=== PATIENT | female | born 1950 | race Caucasian/White ===

== ENCOUNTER → 2016-05-05 | Outpatient (CLI) | payer MEDICARE, OTHER ==
[2016-05-05 11:13] LABS: Potassium 3.4 mmol/L (3.5-5.1)
== END | disposition home or self-care (01) ==
LOC: LABWHC1 10:21
PROVIDERS: ATTEND Family Medicine
CPT/HCPCS: 36415; 80051

== ENCOUNTER → 2016-05-13 | Outpatient (CLI) | payer MEDICARE, OTHER ==
[2016-05-13 08:59] LABS: Appearance,Urine Clear (Clear); Bilirubin,Urine Negative (Negative); CH 30.1; CHCM 34.9; Glucose,Urine (UA) Negative (Negative); HCT 37.5 % (34.0-46.0); HDW 3.04; HGB 12.8 gm/dL (11.4-16.0); Ketones,Urine Negative (Negative); Leukocyte Esterase,Urine Moderate (Negative); MCH 29.7 pg (25.0-35.0); MCHC 34.3 g/dL (31.0-37.0); MCV 86.6 fL (80.0-100.0); Mean Platelet Volume 8.8; Mucus,Urine Rare /hpf; Nitrite,Urine Negative (Negative); PH, Urine 6.5 (5.0-8.0); Particle Count 2243; Protein,Urine Negative (Negative); RBC 4.33 m/uL (3.80-5.40); RBC,Urine <1 /hpf (0-5); RDW 13.5 % (11.5-15.5); Specific Gravity,Urine 1.012 (1.001-1.035); Squamous Epithelial Cell,Urine 1 /hpf (0-4); UA Billing (MACRO vs. MICRO) MICRO; Urobilinogen,Urine <2.0 mg/dL (<2.0); WBC 6.4 k/uL (3.8-10.6); WBC,Urine 6 /hpf (0-5)
[2016-05-13 09:07] LABS: ALT 33 U/L (9-52); AST 21 U/L (14-36); Alkaline Phosphatase 99 U/L (38-126); Anion Gap 11 mmol/L; Blood Urea Nitrogen 16 mg/dL (7-17); Calcium 9.9 mg/dL (8.4-10.2); Carbon Dioxide 28 mmol/L (22-30); Chloride 102 mmol/L (98-107); Glucose 101 mg/dL (74-99); Non-African American GFR(MDRD) >60 (>60 ml/min/1.73 sqM); Phosphorous 3.2 mg/dL (2.5-4.5); Potassium 3.3 mmol/L (3.5-5.1); Sodium 141 mmol/L (137-145); Total Bilirubin 0.5 mg/dL (0.2-1.3); Total Protein 6.7 g/dL (6.3-8.2)
== END | disposition home or self-care (01) ==
LOC: LABWHC1 08:14
PROVIDERS: ATTEND Orthopaedic Surgery
DX: M84.362A Stress fracture, left tibia, initial encounter for fracture (principal); M17.12 Unilateral primary osteoarthritis, left knee; M22.2X2 Patellofemoral disorders, left knee; E55.9 Vitamin D deficiency, unspecified
CPT/HCPCS: 36415; 80053; 81001; 82306; 82310; 82652; 83970; 84100; 85027

== ENCOUNTER → 2016-07-12 | Outpatient (CLI) | payer MEDICARE, OTHER ==
--- NOTE | 2016-07-13 13:48 | MM ---
Reason for exam: screening (asymptomatic). Last mammogram was performed 1 year and 3 months ago. History: Patient is postmenopausal and has history of other cancer at age 63. Excisional biopsy of the left breast. Took estrogen for 16 years 4 months. Took progesterone for 16 years 4 months. Physical Findings: A clinical breast exam by your physician is recommended on an annual basis and results should be correlated with mammographic findings. MG 3D Screening Mammo W/Cad Bilateral CC and MLO view(s) were taken. Prior study comparison: April 21, 2015, bilateral MG screening mammo w CAD. February 02, 2009, bilateral diagnostic digital mammog. The breast tissue is extremely dense which could obscure a lesion on mammography. There is chronic nodularity bilaterally. There is no dominant lesion. No significant changes when compared with prior studies. ASSESSMENT: Benign, BI-RAD 2 RECOMMENDATION: Routine screening mammogram of both breasts in 1 year.
== END | disposition home or self-care (01) ==
LOC: RADMAMWWP 16:12
PROVIDERS: ATTEND Family Medicine
DX: Z12.31 Encounter for screening mammogram for malignant neoplasm of breast (principal)
CPT/HCPCS: 77063; G0202

== ENCOUNTER → 2017-09-07 | Outpatient (CLI) | payer MEDICARE, OTHER ==
--- NOTE | 2017-09-12 11:19 | MM ---
Reason for exam: screening (asymptomatic). Last mammogram was performed 1 year and 2 months ago. History: Patient is postmenopausal and has history of other cancer at age 63. Excisional biopsy of the left breast. Took estrogen for 16 years 4 months. Took progesterone for 16 years 4 months. Physical Findings: A clinical breast exam by your physician is recommended on an annual basis and results should be correlated with mammographic findings. MG Screening Mammo w CAD Bilateral CC and MLO view(s) were taken. Prior study comparison: July 12, 2016, bilateral MG 3d screening mammo w/cad. April 21, 2015, bilateral MG screening mammo w CAD. The breast tissue is heterogeneously dense. This may lower the sensitivity of mammography. No suspicious abnormality on the right. Rounded left upper inner quadrant focal asymmetry at middle posterior depth, 8cm from nipple. ASSESSMENT: Incomplete: need additional imaging evaluation, BI-RAD 0 RECOMMENDATION: Special view mammogram of the left breast. If lesion persists on supplemental views, image directed ultrasound is recommended. [facility] will attempt to contact patient to return for supplemental views and ultrasound if indicated.
== END | disposition home or self-care (01) ==
LOC: RADMAMWWP 14:37
PROVIDERS: ATTEND Family Medicine
DX: Z12.31 Encounter for screening mammogram for malignant neoplasm of breast (principal)
CPT/HCPCS: 77067

== ENCOUNTER → 2017-09-20 | Outpatient (CLI) | payer MEDICARE, OTHER ==
--- NOTE | 2017-09-20 09:50 | MM ---
Reason for exam: additional evaluation requested from abnormal screening. Last mammogram was performed less than 1 month ago. History: Patient is postmenopausal and has history of other cancer at age 63. Excisional biopsy of the left breast. Took estrogen for 16 years 4 months. Took progesterone for 16 years 4 months. Physical Findings: Nurse did not find any significant physical abnormalities on exam. MG Work Up Mamm w CAD LT Spot compression CC, spot compression MLO, and LM view(s) were taken of the left breast. Prior study comparison: September 07, 2017, bilateral MG screening mammo w CAD. July 12, 2016, bilateral MG 3d screening mammo w/cad. No distinct lesion persists on additional images. These results were verbally communicated with the patient and result sheet given to the patient on 09/20/17. ASSESSMENT: Negative, BI-RAD 1 RECOMMENDATION: Return to routine screening mammogram schedule for both breasts.
== END | disposition home or self-care (01) ==
LOC: RADMAMWWP 06:54
PROVIDERS: ATTEND Family Medicine
DX: R92.8 Other abnormal and inconclusive findings on diagnostic imaging of breast (principal)
CPT/HCPCS: 77065

== ENCOUNTER 2018-02-21 09:27 | Emergency (ER) | payer MEDICARE, OTHER ==
[2018-02-21 09:31] VITALS: BP 149/83; PULSE 90; RESP 18; TEMP 97.9
--- NOTE | 2018-02-21 10:08 | XR ---
EXAMINATION TYPE: XR knee complete RT DATE OF EXAM: 02/21/2018 CLINICAL HISTORY: Pain after walking injury. TECHNIQUE: Three views of the right knee are obtained. COMPARISON: None. FINDINGS: There is no acute fracture/dislocation evident in right knee. Mild to moderate narrowing a nd mild spurring medial tibiofemoral and patellofemoral compartments is present. The overlying soft tissue appears unremarkable. IMPRESSION: There is no acute fracture or dislocation in the right knee.
--- NOTE | 2018-02-21 10:51 | US ---
EXAMINATION TYPE: US extremity nonvascular ltd RT DATE OF EXAM: 02/21/2018 COMPARISON: NONE CLINICAL HISTORY: Pain. Patient was walking on treadmill when suddenly she felt pain. Patient has Wilkins's cyst measuring 4.4 x 1.8 x 2.1cm. IMPRESSION: Small to moderate-sized popliteal cyst measuring 4.4 cm on long axis may be accounting f or patient's symptoms. Consider nonemergent MRI follow-up.
--- NOTE | 2018-02-21 10:59 | ED ---
Lower Extremity Injury HPI - General Chief Complaint: Extremity Injury, Lower Stated Complaint: right leg pain Time Seen by Provider: 02/21/18 09:43 Source: patient, RN notes reviewed Mode of arrival: wheelchair Limitations: no limitations - History of Present Illness Initial Comments: 59-year-old female presents emergency Department with chief complaint of right knee pain. Patient states started walking on a treadmill yesterday. She denies twisting or walking awkwardly. She states she just felt this pain behind her knee. Patient states it feels swollen. Patient denies any calf pain , thigh pain. She states she has full range of motion denies any pain without weightbearing. Patient states that if her leg is completely straight it is worse. She is able to fully bend it. Patient denies any redness or discoloration. - Related Data Home Medications Medication Instructions Recorded Confirmed Chlorthalidone 25 mg PO DAILY 02/21/18 02/21/18 Levothyroxine Sodium [Synthroid] 175 mcg PO DAILY 02/21/18 02/21/18 Potassium Chloride ER [K-Dur 10] 10 meq PO TID 02/21/18 02/21/18 Unknown Allergy Tab 1 tab PO Q12H 02/21/18 02/21/18 Previous Rx's Medication Instructions Recorded Ibuprofen [Motrin] 600 mg PO Q8HR PRN #30 tab 02/21/18 Allergies Allergy/AdvReac Type Severity Reaction Status Date / Time No Known Allergies Allergy Verified 02/21/18 09:31 Review of Systems ROS Statement: Those systems with pertinent positive or pertinent negative responses have been documented in the HPI. ROS Other: All systems not noted in ROS Statement are negative. Past Medical History Past Medical History: Thyroid Disorder History of Any Multi-Drug Resistant Organisms: None Reported Past Surgical History: Appendectomy, Cholecystectomy Additional Past Surgical History / Comment(s): thyroid, CA Past Psychological History: No Psychological Hx Reported Smoking Status: Never smoker Past Alcohol Use History: None Reported Past Drug Use History: None Reported General Exam Limitations: no limitations General appearance: alert, in no apparent distress Head exam: Present: atraumatic, normocephalic, normal inspection Respiratory exam: Present: normal lung sounds bilaterally. Absent: respiratory distress, wheezes, rales, rhonchi, stridor Cardiovascular Exam: Present: regular rate, normal rhythm, normal heart sounds. Absent: systolic murmur, diastolic murmur, rubs, gallop, clicks Extremities exam: Present: other (Right knee full range of motion, mild discomfort with full extension, mild swelling. Neurovascular intact no laxity) Course Vital Signs 02/21/18 09:27 Temperature 97.9 F Pulse Rate 90 Respiratory 18 Rate Blood Pressure 149/83 O2 Sat by Pulse 98 Oximetry Medical Decision Making - Medical Decision Making 59-year-old female was in for right knee pain. X-ray, ultrasound were obtained. Patient has Wilkins's cyst noted. Patient's symptoms are consistent with a Wilkins's cyst will be Florin wrapped and follow-up with orthopedics. Disposition Clinical Impression: Synovial cyst of popliteal space [Wilkins], right knee Disposition: HOME SELF-CARE Condition: Stable Instructions: Knee Pain (ED), Bakers Cyst (ED) Additional Instructions: Please return to the Emergency Department if symptoms worsen or any other concerns. Prescriptions: Ibuprofen [Motrin] 600 mg PO Q8HR PRN #30 tab PRN Reason: Pain Is patient prescribed a controlled substance at d/c from ED?: No Referrals: Raghu German MD [Primary Care Provider] - 1-2 days Addi Middleton DO [Medical Doctor] - 1-2 days Time of Disposition: 10:58
== END 2018-02-21 11:22 | disposition home or self-care (01) ==
LOC: EC 09:27
DX: M71.21 Synovial cyst of popliteal space [Baker], right knee (principal); E07.9 Disorder of thyroid, unspecified; Z85.9 Personal history of malignant neoplasm, unspecified; Z79.899 Other long term (current) drug therapy
CPT/HCPCS: 99284

== ENCOUNTER → 2018-05-27 | Outpatient (CLI) | payer MEDICARE, OTHER ==
--- NOTE | 2018-05-28 10:49 | CT ---
EXAMINATION TYPE: CT ChestAbdPelvis w con DATE OF EXAM: 05/27/2018 COMPARISON: CT chest abdomen and pelvis March 05, 2015 and older CTs back through 2012. HISTORY: Follicular lymphoma, lump on neck. Lymphoma was treated with chemotherapy [address] DLP: 1514.20 mGycm. Automated Exposure Control for Dose Reduction was Utilized. CONTRAST: CT scan of the thorax, abdomen and pelvis is performed with oral and with IV Contrast, patient inject ed with 100 mL of Isovue 300. FINDINGS: LUNGS: Slightly elevated left hemidiaphragm is redemonstrated. MEDIASTINUM: There are no greater than 1 cm hilar or mediastinal lymph nodes. No cardiomegaly or pe ricardial effusion is seen. Thyroid gland is not visualized and felt medically or surgically absent. New suspicious soft tissue thickening left paraesophageal periaortic region below chas seen best a xial image 43 measures 1.8 x 1.0 cm. LIVER/GB: Gallbladder is not seen and postsurgical absent. PANCREAS: No significant abnormality is seen. SPLEEN: No significant abnormality is seen. ADRENALS: No significant abnormality is seen. KIDNEYS: No significant abnormality is seen. BOWEL: Oral contrast reaches level of rectum. There is no suspicious small or large bowel dilatation GENITAL ORGANS: Anteverted uterus is present. LYMPH NODES: No greater than 1cm abdominal or pelvic lymph nodes are appreciated. There is some ill-d efined soft tissue or loss of surrounding normal mesenteric fat at the SMA for reference axial images 63 through 73 is less prominent than older studies but not significantly changed from 2016 study. Th ere is some narrowing but patency of the draining left renal vein due to local mass effect axial imag e 34 series 7. OSSEOUS STRUCTURES: Moderate disc space narrowing with vacuum disc phenomenon L5-S1 level is present. OTHER: No significant additional abnormality is seen. IMPRESSION: Stable loss of surrounding fat at SMA could reflect residual lymphoma. New suspicious lef t paraesophageal soft tissue nodularity from most recent CT 2015 suggests new area of lymphoma invol vement correlating with large area of neoplasm retrocrural level on older CTs 2012. Consider PET/CT c onfirmation.
== END ==
LOC: RADCTMAIN 13:00
PROVIDERS: ATTEND Internal Medicine Hematology & Oncology
DX: C82.98 Follicular lymphoma, unspecified, lymph nodes of multiple sites (principal)
CPT/HCPCS: 71260; 74177; 82565; 84520

== ENCOUNTER 2018-06-12 12:06 | Day surgery (SDC) | payer MEDICARE, OTHER ==
[2018-06-12 12:32] VITALS: TEMP 97.9
[2018-06-12 14:13] VITALS: BP 130/63; PULSE 86; RESP 14
--- NOTE | 2018-06-12 14:36 | US ---
ULTRASOUND GUIDED CORE BIOPSY LEFT NECK MASS: CLINICAL HISTORY: Left neck mass FINDINGS: The procedure was explained to the patient. The risks, complications, benefits and alternatives were discussed and any questions were answered. Informed consent was obtained. Patient was placed supin e on the ultrasound table and prepped and draped in the usual sterile fashion. Utilizing a 18-gauge core biopsy needle 4 samples were obtained from the left neck mass. Patient was stable throughout the procedure. Pathology is pending. All elements of maximal and sterile barrier technique were utilized. IMPRESSION: 1. Successful ultrasound guided core biopsy left neck mass.
== END 2018-06-12 13:55 | disposition home or self-care (01) ==
LOC: RADPROMAIN 12:06
PROVIDERS: ATTEND Internal Medicine Hematology & Oncology
DX: C82.91 Follicular lymphoma, unspecified, lymph nodes of head, face, and neck (principal); C85.82 Other specified types of non-Hodgkin lymphoma, intrathoracic lymph nodes
CPT/HCPCS: 20206; 76942; 88305; 88341; 88342

== ENCOUNTER → 2019-07-21 | Outpatient (CLI) | payer MEDICARE, OTHER ==
--- NOTE | 2019-07-21 15:16 | CT ---
EXAMINATION TYPE: CT ChestAbdPelvis w con DATE OF EXAM: 07/21/2019 COMPARISON: Prior CT 05/27/2018 HISTORY: follow up follicular lymphoma CT DLP: 1895 mGycm Automated exposure control for dose reduction was used. CONTRAST: CT scan of the chest, abdomen and pelvis is performed with Oral Contrast and with IV Contrast, patien t injected with 100 mL of Isovue 300. FINDINGS: LUNGS: The lungs are grossly clear, there is no concerning parenchymal mass or nodule identified. T here is no pleural effusion or pneumothorax seen. The tracheobronchial tree is patent. MEDIASTINUM: There are no greater than 1 cm hilar or mediastinal lymph nodes. No pericardial effusi on is seen. AORTA: Abnormal periaortic soft tissue is present and has progressed compared to prior exam best see n on axial image #46 and courses about 270 degrees about the anterior and lateral aspects of the aort a. OTHER: No additional significant abnormality is seen. LIVER/GB: Liver shows low attenuation likely due to hepatic steatosis. Gallbladder is absent. PANCREAS: No significant abnormality is seen. SPLEEN: Multiple low dense lesions are present within the spleen which were not seen on prior exam, l argest is 2.5 cm. ADRENALS: No significant abnormality is seen. KIDNEYS: No significant abnormality is seen. REPRODUCTIVE ORGANS: No gross abnormality seen. BOWEL: No significant abnormality is seen. FREE AIR: No Free Air visible. ASCITES: None seen. RETROPERITONEAL ADENOPATHY: No retroperitoneal adenopathy is seen. LYMPH NODES: No greater than 1 cm abdominal or pelvic lymph nodes are appreciated. URINARY BLADDER: No significant abnormality is seen. PELVIC ADENOPATHY: None visualized. OSSEOUS STRUCTURES: No significant abnormality is seen. IMPRESSION: Interval development of multiple low dense lesions within the spleen an increase in peria ortic soft tissue noted along the descending aorta
== END | disposition home or self-care (01) ==
LOC: RADCTMAIN 11:51
PROVIDERS: ATTEND Internal Medicine Hematology & Oncology
DX: C82.89 Other types of follicular lymphoma, extranodal and solid organ sites (principal); D73.89 Other diseases of spleen
CPT/HCPCS: 82565; 84520; 71260; 74177; 36415; Q9967

== ENCOUNTER → 2020-01-27 | Outpatient (CLI) | payer MEDICARE, OTHER ==
--- NOTE | 2020-01-27 12:29 | CT ---
EXAMINATION TYPE: CT ChestAbdPelvis w con DATE OF EXAM: 01/27/2020 COMPARISON: Most recent CT July 21, 2019 and older studies HISTORY: follow up follicular lymphoma CT DLP: 1687.5 mGycm. Automated Exposure Control for Dose Reduction was Utilized. CONTRAST: CT scan of the thorax, abdomen and pelvis is performed with oral and with IV Contrast, patient inject ed with 100 mL of Isovue 300. FINDINGS: LUNGS: Elevated left hemidiaphragm redemonstrated. The lungs remain grossly clear, there is no concer robi new parenchymal mass or nodule identified. There is no pleural effusion or pneumothorax seen. The tracheobronchial tree is patent. MEDIASTINUM: There are no new greater than 1 cm hilar or mediastinal lymph nodes. No cardiomegaly o r pericardial effusion is seen. Hypoplastic or surgically absent thyroid redemonstrated. OTHER: Worsening paraaortic soft tissue beginning below the chas there are axial image 36 extending to level of diaphragm axial image 54 measuring up to 2.0 cm in thickness on axial image 47. This is causing anterior distal esophageal displacement. LIVER/GB: Gallbladder not seen presumed surgically absent. Liver remains diffusely low dense suggesti ng fatty infiltration. PANCREAS: No significant abnormality is seen. SPLEEN: Spleen size stable and upper limits of normal. Approximately 6-10 small scattered hypodense l esions are noted, decreased in size and number of lesions are present from most recent CT. For refere nce 2.5 cm lower anterior lesion on image 65 now measures 6 mm axial image 63. ADRENALS: No significant abnormality is seen. KIDNEYS: Symmetric cortical medullary uptake and excretion without concerning renal mass or hydroneph rosis seen bilaterally. BOWEL: Oral contrast reaches level of the right colon. No suspicious small or large bowel dilatation. GENITAL ORGANS: Anteverted uterus. LYMPH NODES: No new greater than 1cm abdominal or pelvic lymph nodes are appreciated. Persistent abno rmal soft tissue surrounding the SMA axis dimension 67, this is not changed from several prior studie s. OSSEOUS STRUCTURES: Moderate to severe disc space narrowing L5-S1 level with vacuum disc phenomenon. OTHER: No significant additional abnormality is seen. IMPRESSION: Splenic lesions less prominent possibly improved from recent CT. There is however contin ued worsening paraortic soft tissue or lymphoma progression surrounding the descending thoracic aorta in the mid to lower thorax.
== END | disposition home or self-care (01) ==
LOC: RADCTMAIN 09:57
PROVIDERS: ATTEND Internal Medicine Hematology & Oncology
DX: C82.98 Follicular lymphoma, unspecified, lymph nodes of multiple sites (principal)
CPT/HCPCS: 82565; 84520; 71260; 74177; 36415; Q9967

== ENCOUNTER 2020-03-30 07:24 | Day surgery (SDC) | payer MEDICARE, OTHER ==
[2020-03-26 10:47] VITALS: BMI 30.7
[~2020-03-30 07:24] MED LIST: LACTATED RINGERS 1,000 ML IV SCH; LIDOCAINE 1% (10MG/ML) FOR IV START INTRADERMA PRN; MIDAZOLAM 2 MG/2 ML VIAL IV PRN
[2020-03-30 07:52] VITALS: RESP 16; TEMP 97
[2020-03-30] MEDS ORDERED: PROPOFOL 10 MG/ML 20 ML VIAL IV ONE (08:07)
--- NOTE | 2020-03-30 08:12 | P.GSHP ---
History of Present Illness H&P Date: 03/30/20 Chief Complaint: Change in bowel habits 69-year-old female here today for colonoscopy. Complaints of diarrhea for the last 3 months or so. Loose stools 6-8 times per day. Did improve somewhat with fiber supplementation. She is overdue for colonoscopy. Last colonoscopy 2015. Patient had adenomatous polyps at that time. Past Medical History Past Medical History: Cancer, Hypertension, Thyroid Disorder Additional Past Medical History / Comment(s): thyroid cancer, non hodgkins lymphoma -had chemo 7 yrs. ago, recent CT, frequent diarrhea, hx. colon polyps History of Any Multi-Drug Resistant Organisms: None Reported Past Surgical History: Appendectomy, Cholecystectomy Additional Past Surgical History / Comment(s): total thyroidectomy Past Anesthesia/Blood Transfusion Reactions: Motion Sickness Smoking Status: Former smoker - Past Family History Mother Family Medical History: Cancer Additional Family Medical History / Comment(s): bone cancer Medications and Allergies Home Medications Medication Instructions Recorded Confirmed Type Levothyroxine Sodium [Synthroid] 150 mcg PO DAILY 02/21/18 03/30/20 History Potassium Chloride ER [K-Dur 10] 80 meq PO DAILY 02/21/18 03/30/20 History Chlorthalidone 25 mg PO DAILY 06/04/18 03/30/20 History Ergocalciferol (Vitamin D2) 50,000 unit PO Q30D 06/04/18 03/30/20 History [Vitamin D2] Allergies Allergy/AdvReac Type Severity Reaction Status Date / Time No Known Allergies Allergy Verified 03/30/20 07:40 Surgical - Exam Vital Signs Temp Pulse Resp BP Pulse Ox 97 F L 89 16 125/72 95 03/30/20 07:51 03/30/20 07:51 03/30/20 07:51 03/30/20 07:51 03/30/20 07:51 Physical exam: General: Well-developed, well-nourished HEENT: Normocephalic, sclerae nonicteric Abdomen: Nontender, nondistended Extremities: No edema Neuro: Alert and oriented Assessment and Plan (1) Change in bowel habits Narrative/Plan: Will proceed with colonoscopy Current Visit: Yes Status: Acute Code(s): R19.4 - CHANGE IN BOWEL HABIT SNOMED Code(s): 216351892
--- NOTE | 2020-03-30 08:31 | P.PCN ---
Date of Procedure: 03/30/20 Procedure(s) Performed: PREOPERATIVE DIAGNOSIS: Change in bowel habits, diarrhea, history of polyps POSTOPERATIVE DIAGNOSIS: Tortuous colon unable to complete colonoscopy, mild diverticulosis PROCEDURE: Colonoscopy to the distal transverse colon with random biopsy ANESTHESIA: MAC SURGEON: Suman Hopper M.D. SPECIMENS: Random colon ENDOSCOPIC PROCEDURE: The patient was placed on the endoscopy table in the left decubitus position. The Olympus colonoscope was inserted into the anus and passed under direct visualization to the distal transverse colon. We could not advance the scope proximal given distal tortuosity. There was mild scattered diverticulosis. The patient did have some retained fibrous food material scattered throughout the colon as well. Random biopsies of the colon took place. Cultures were also taken and sent for C. diff and stool culture. Digital rectal examination was normal. The patient was taken to the recovery room in stable condition per anesthesia guidelines. RECOMMENDATIONS: Await biopsy results. Await cultures. Patient will require barium enema or repeat colonoscopy in the near future.
[2020-03-30] MEDS ORDERED: LACTATED RINGERS 550 ML IV ONE (08:32)
[2020-03-30 08:52] VITALS: BP 108/64; PULSE 64
== END 2020-03-30 09:02 | disposition home or self-care (01) ==
LOC: ORWHC2ENDO 07:24
PROVIDERS: ATTEND Surgery
DX: K57.30 Diverticulosis of large intestine without perforation or abscess without bleeding (principal); Q43.8 Other specified congenital malformations of intestine; I10 Essential (primary) hypertension; E89.0 Postprocedural hypothyroidism; Z86.010 Personal history of colon polyps; Z85.850 Personal history of malignant neoplasm of thyroid; Z85.72 Personal history of non-Hodgkin lymphomas; Z92.21 Personal history of antineoplastic chemotherapy; Z90.49 Acquired absence of other specified parts of digestive tract; Z87.898 Personal history of other specified conditions; Z87.891 Personal history of nicotine dependence; Z79.890 Hormone replacement therapy; Z79.899 Other long term (current) drug therapy; Z97.2 Presence of dental prosthetic device (complete) (partial); Z80.8 Family history of malignant neoplasm of other organs or systems
CPT/HCPCS: 87324; 87045; 87046; 45380; J2704; 88305

== ENCOUNTER 2020-04-27 17:44 | Emergency (ER) | payer MEDICARE, OTHER ==
[2020-04-27 18:25] VITALS: TEMP 99.2
[2020-04-27] MEDS ORDERED: ONDANSETRON 4 MG/2 ML VIAL IVP STA (19:22)
[2020-04-27] MEDS ORDERED: SODIUM CHLORIDE 0.9% 1,000 ML IV STA (19:22)
[2020-04-27] MEDS ORDERED: MORPHINE SULFATE 4 MG/ML SYRINGE IV STA (19:22)
--- NOTE | 2020-04-27 19:35 | ED ---
General Adult HPI - General Chief complaint: Abdominal Pain Stated complaint: Diarrhea Time Seen by Provider: 04/27/20 19:10 Source: patient, RN notes reviewed Mode of arrival: wheelchair Limitations: no limitations - History of Present Illness Initial comments: Patient is a 70-year-old female that presents to emergency department complaining of consistent diarrhea since July. She does follow-up with a general specialist who had colonoscopy both unable to get complete through intestines. Patient did note that the room was fluid. She notes that she has diarrhea almost daily sometimes many episodes of the day and sometimes 2-3. She denied any pain or nausea at this time. She is to the emergency room to get answers. Patient was well-appearing, well-nourished. She reported a slight drank about 8 ounces water today. She denied any chest pain shortness breath headache vomiting constipation fever fatigue chills - Related Data Home Medications Medication Instructions Recorded Confirmed Levothyroxine Sodium [Synthroid] 150 mcg PO DAILY 02/21/18 03/30/20 Potassium Chloride ER [K-Dur 10] 80 meq PO DAILY 02/21/18 03/30/20 Chlorthalidone 25 mg PO DAILY 06/04/18 03/30/20 Ergocalciferol (Vitamin D2) 50,000 unit PO Q30D 06/04/18 03/30/20 [Vitamin D2] Allergies Allergy/AdvReac Type Severity Reaction Status Date / Time No Known Allergies Allergy Verified 04/27/20 18:25 Review of Systems ROS Statement: Those systems with pertinent positive or pertinent negative responses have been documented in the HPI. ROS Other: All systems not noted in ROS Statement are negative. Past Medical History Past Medical History: Cancer, Thyroid Disorder Additional Past Medical History / Comment(s): thyroid cancer, non hodgkins lymphoma History of Any Multi-Drug Resistant Organisms: None Reported Past Surgical History: Appendectomy, Cholecystectomy Additional Past Surgical History / Comment(s): total thyroidectomy Past Anesthesia/Blood Transfusion Reactions: Motion Sickness Past Psychological History: No Psychological Hx Reported Smoking Status: Never smoker Past Alcohol Use History: Occasional Past Drug Use History: None Reported - Past Family History Mother Family Medical History: Cancer Additional Family Medical History / Comment(s): bone cancer General Exam Limitations: no limitations General appearance: alert, in no apparent distress Head exam: Present: atraumatic, normocephalic, normal inspection Eye exam: Present: normal appearance, PERRL, EOMI. Absent: scleral icterus, conjunctival injection, periorbital swelling ENT exam: Present: normal exam, mucous membranes moist Neck exam: Present: normal inspection. Absent: tenderness, meningismus, lymphadenopathy Respiratory exam: Present: normal lung sounds bilaterally. Absent: respiratory distress, wheezes, rales, rhonchi, stridor Cardiovascular Exam: Present: regular rate, normal rhythm, normal heart sounds. Absent: systolic murmur, diastolic murmur, rubs, gallop, clicks GI/Abdominal exam: Present: soft, normal bowel sounds. Absent: distended, tenderness, guarding, rebound, rigid Extremities exam: Present: normal inspection, full ROM, normal capillary refill. Absent: tenderness, pedal edema, joint swelling, calf tenderness Back exam: Present: normal inspection Neurological exam: Present: alert, oriented X3, CN II-XII intact Psychiatric exam: Present: normal affect, normal mood Skin exam: Present: warm, dry, intact, normal color. Absent: rash Course Vital Signs 04/27/20 18:23 Temperature 99.2 F Pulse Rate 106 H Respiratory 20 Rate Blood Pressure 117/70 O2 Sat by Pulse 95 Oximetry Medical Decision Making - Medical Decision Making 20-year-old female complaining of diarrhea since July. CT of the abdomen and pelvis, labs, 1 L normal saline ordered. Potassium 2.9, ordered 40 mEq to be taken orally. Case discussed with Dr. Smith, patient will discharge home with follow-up to GI. - Lab Data Result diagrams: 04/27/20 19:39 04/27/20 19:39 Lab Results 04/27/20 04/27/20 04/27/20 Range/Units 19:39 19:39 19:39 WBC 7.0 (3.8-10.6) k/uL RBC 4.63 (3.80-5.40) m/uL Hgb 13.9 (11.4-16.0) gm/dL Hct 40.6 (34.0-46.0) % MCV 87.8 (80.0-100.0) fL MCH 30.1 (25.0-35.0) pg MCHC 34.2 (31.0-37.0) g/dL RDW 14.5 (11.5-15.5) % Plt Count 150 (150-450) k/uL MPV 9.7 Neutrophils % 74 % Lymphocytes % 12 % Monocytes % 11 % Eosinophils % 1 % Basophils % 1 % Neutrophils # 5.2 (1.3-7.7) k/uL Lymphocytes # 0.8 L (1.0-4.8) k/uL Monocytes # 0.7 (0-1.0) k/uL Eosinophils # 0.1 (0-0.7) k/uL Basophils # 0.0 (0-0.2) k/uL Sodium 138 (137-145) mmol/L Potassium 2.9 L (3.5-5.1) mmol/L Chloride 100 (98-107) mmol/L Carbon Dioxide 26 (22-30) mmol/L Anion Gap 12 mmol/L BUN 18 H (7-17) mg/dL Creatinine 0.81 (0.52-1.04) mg/dL Est GFR (CKD-EPI)AfAm 85 (>60 ml/min/1.73 sqM) Est GFR (CKD-EPI)NonAf 74 (>60 ml/min/1.73 sqM) Glucose 112 H (74-99) mg/dL Calcium 9.9 (8.4-10.2) mg/dL Total Bilirubin 0.5 (0.2-1.3) mg/dL AST 42 H (14-36) U/L ALT 45 H (4-34) U/L Alkaline Phosphatase 154 H (38-126) U/L Total Protein 7.0 (6.3-8.2) g/dL Albumin 4.5 (3.5-5.0) g/dL Amylase 46 (30-110) U/L Lipase 31 (23-300) U/L Urine Color Yellow Urine Appearance Clear (Clear) Urine pH 5.5 (5.0-8.0) Ur Specific [place] 1.020 (1.001-1.035) Urine Protein Negative (Negative) Urine Glucose (UA) Negative (Negative) Urine Ketones Negative (Negative) Urine Blood Negative (Negative) Urine Nitrite Negative (Negative) Urine Bilirubin Negative (Negative) Urine Urobilinogen <2.0 (<2.0) mg/dL Ur Leukocyte Esterase Large H (Negative) Urine RBC 1 (0-5) /hpf Urine WBC 26 H (0-5) /hpf Ur Squamous Epith Cells 1 (0-4) /hpf Urine Mucus Rare H (None) /hpf Disposition Clinical Impression: Chronic diarrhea Disposition: HOME SELF-CARE Condition: Stable Instructions (If sedation given, give patient instructions): Chronic Diarrhea (ED) Additional Instructions: Please return to the Emergency Department if symptoms worsen or any other concerns. Follow-up with primary care in 2-4 days. Consult GI specialists for ongoing diarrhea symptoms. Ordered for stool studies, C. diff, lactoferrin given. Is patient prescribed a controlled substance at d/c from ED?: No Referrals: Raghu German MD [Primary Care Provider] - 1-2 days Ellie Davies MD [STAFF PHYSICIAN] - 1-2 days Time of Disposition: 21:28
[2020-04-27 19:45] LABS: Basophils % (A) 1 %; Eosinophils # (A) 0.1 k/uL (0-0.7); Eosinophils % (A) 1 %; HCT 40.6 % (34.0-46.0); HGB 13.9 gm/dL (11.4-16.0); Lymphocytes # (A) 0.8 k/uL (1.0-4.8); Lymphocytes % (A) 12 %; MCH 30.1 pg (25.0-35.0); MCHC 34.2 g/dL (31.0-37.0); MCV 87.8 fL (80.0-100.0); Mean Platelet Volume 9.7; Monocytes # (A) 0.7 k/uL (0-1.0); Monocytes % (A) 11 %; Neutrophils # (A) 5.2 k/uL (1.3-7.7); Neutrophils % (A) 74 %; Platelet Count 150 k/uL (150-450); RBC 4.63 m/uL (3.80-5.40); RDW 14.5 % (11.5-15.5)
[2020-04-27 19:47] LABS: Appearance,Urine Clear (Clear); Bilirubin,Urine Negative (Negative); Blood,Urine Negative (Negative); Color,Urine Yellow; Glucose,Urine (UA) Negative (Negative); Ketones,Urine Negative (Negative); Leukocyte Esterase,Urine Large (Negative); Mucus,Urine Rare /hpf; Nitrite,Urine Negative (Negative); PH, Urine 5.5 (5.0-8.0); Protein,Urine Negative (Negative); RBC,Urine 1 /hpf (0-5); Squamous Epithelial Cell,Urine 1 /hpf (0-4); Urobilinogen,Urine <2.0 mg/dL (<2.0); WBC,Urine 26 /hpf (0-5)
[2020-04-27 19:53] LABS: Albumin 4.5 g/dL (3.5-5.0); Calcium 9.9 mg/dL (8.4-10.2); Potassium 2.9 mmol/L (3.5-5.1); Total Bilirubin 0.5 mg/dL (0.2-1.3)
[2020-04-27] MEDS ORDERED: POTASSIUM CHLORIDE ER 20 MEQ TAB.ER PO STA (19:55)
--- NOTE | 2020-04-27 20:57 | CT ---
EXAMINATION TYPE: CT abdomen pelvis w con DATE OF EXAM: 04/27/2020 COMPARISON: 01/27/2020 HISTORY: Abdominal pain and diarrhea. Hx of lymphoma. CT DLP: 1266.7 mGycm Automated exposure control for dose reduction was used. CONTRAST: Performed with IV Contrast, patient injected with 100ml mL of Isovue 300. Images obtained from the diaphragm to the floor the pelvis with IV contrast. Lung bases are clear. There is no pleural effusion. Heart size is normal. There is some increased sof t tissue density around the lower thoracic aorta consistent with adenopathy. This measures up to 2 cm in thickness. Spleen measures 13.5 cm. Liver shows no focal defect. There are small hypodense areas scattered in the spleen that measure up to 1.5 cm. There is no pancreatic mass. Stomach appears intac t. There is no adrenal mass. There is no pancreatic mass. Kidneys show satisfactory contrast opacificati on. There is no hydronephrosis. Ureters are not dilated. Bladder distends smoothly. There is no ingui nal hernia. There is no free fluid in the pelvis. There is no mesenteric edema. There is no ascites or free air. There is no bowel obstruction. Uterus is anteverted. There is no pelvic mass. Lumbar spine is intact. There is mild L5-S1 disc space narrow ing. IMPRESSION: Increased soft tissue density around the lower thoracic aorta consistent with residual tumor that is not changed compared to old CT scan. Multiple hypodense areas in the spleen unchanged and could be re lated to lymphoma. No acute abnormality within the abdomen pelvis.
[2020-04-27 22:00] VITALS: BP 122/78; PULSE 84; RESP 18
== END 2020-04-27 22:00 | disposition home or self-care (01) ==
LOC: EC 17:44
DX: K52.9 Noninfective gastroenteritis and colitis, unspecified (principal); E07.9 Disorder of thyroid, unspecified; Z79.890 Hormone replacement therapy; Z79.899 Other long term (current) drug therapy; Z85.850 Personal history of malignant neoplasm of thyroid; Z85.72 Personal history of non-Hodgkin lymphomas; Z90.89 Acquired absence of other organs; Z90.49 Acquired absence of other specified parts of digestive tract
CPT/HCPCS: 36415; 80053; 82150; 83690; 85025; 81001; 87086; 87077; 87186; 74177; 99284; 96360; Q9967

== ENCOUNTER → 2020-07-16 | Outpatient (CLI) | payer MEDICARE, OTHER ==
--- NOTE | 2020-07-16 14:39 | CT ---
EXAMINATION TYPE: CT ChestAbdPelvis w con DATE OF EXAM: 07/16/2020 COMPARISON: Prior CT January 27, 2020 and older CTs HISTORY: Lymphoma CT DLP: 1635.7 mGycm. Automated Exposure Control for Dose Reduction was Utilized. CONTRAST: CT scan of the thorax, abdomen and pelvis is performed with oral and with IV Contrast, patient inject ed with 100ml mL of Isovue 300. FINDINGS: LUNGS: Elevated left hemidiaphragm is redemonstrated. The lungs remain grossly clear, there is no con cerning new parenchymal mass or nodule identified. There is no pleural effusion or pneumothorax see n. The tracheobronchial tree is patent. MEDIASTINUM: There are no new greater than 1 cm hilar or mediastinal lymph nodes. No cardiomegaly o r pericardial effusion is seen. Hypoplastic or surgically absent thyroid redemonstrated. OTHER: Persistent abnormal paraaortic soft tissue beginning below the chas near axial image 48 curr ent study extending just below level of diaphragm axial image 48 on current study. This is improved i n length and thickness from most recent study measuring up to 7 mm current study axial image 45 . LIVER/GB: Gallbladder not seen presumed surgically absent. Liver remains diffusely low dense suggesti ng fatty infiltration. PANCREAS: No significant abnormality is seen. SPLEEN: Spleen size fairly stable and upper limits of normal. Occasional heterogeneous hypodense lesi on redemonstrated. For reference 1.3 cm lesion superiorly on long axis axial image 44 not significant ly changed from prior study. Other lesions stable or less well seen on current study. No new or enlar ging lesions noted. ADRENALS: No significant abnormality is seen. KIDNEYS: Symmetric cortical medullary uptake and excretion without concerning new renal mass or hydro nephrosis seen bilaterally. BOWEL: Oral contrast reaches level of the cecum. No suspicious small or large bowel dilatation. Mild wall thickening in portions of transverse and left colon position product of poor distention, mild un complicated colitis not excluded. GENITAL ORGANS: Anteverted uterus redemonstrated. LYMPH NODES: No new greater than 1cm abdominal or pelvic lymph nodes are appreciated. Persistent mild abnormal soft tissue surrounding the SMA axis axial image 61 for reference, this is not changed from several prior studies.. Scattered prominent but subcentimeter lymph nodes throughout the mesentery a gain seen. OSSEOUS STRUCTURES: Moderate to severe disc space narrowing L5-S1 level with vacuum disc phenomenon i s redemonstrated. OTHER: No significant additional abnormality is seen. IMPRESSION: Splenic lesions stable or slightly improved from recent CT. There is improved paraortic soft tissue or lymphoma involvement surrounding the descending thoracic aorta in the mid to lower tho rax. No new suspicious masses or adenopathy.
== END | disposition home or self-care (01) ==
LOC: RADCTMAIN 11:00
PROVIDERS: ATTEND Internal Medicine Hematology & Oncology
DX: Z03.89 Encounter for observation for other suspected diseases and conditions ruled out (principal); C82.98 Follicular lymphoma, unspecified, lymph nodes of multiple sites; C49.3 Malignant neoplasm of connective and soft tissue of thorax; D73.89 Other diseases of spleen
CPT/HCPCS: 82565; 84520; 71260; 74177; 36415; Q9967 ×2

== ENCOUNTER → 2021-04-15 | Outpatient (CLI) | payer MEDICARE, OTHER ==
--- NOTE | 2021-04-15 11:35 | CT ---
EXAMINATION TYPE: CT ChestAbdPelvis w con DATE OF EXAM: 04/15/2021 COMPARISON: CT dated 07/16/2020 HISTORY: Lymphoma, observe for mets. CT DLP: 1531.4 mGycm Automated exposure control for dose reduction was used. CONTRAST: CT scan of the chest, abdomen and pelvis is performed with Oral Contrast and with IV Contrast, patien t injected with 100ml mL of Isovue 300. FINDINGS: LUNGS: Stable 3 mm nodule in the right lower lobe superior segment. Otherwise the lungs are grossly c lear, there is no concerning parenchymal mass or nodule identified. There is no pleural effusion or pneumothorax seen. The tracheobronchial tree is patent. MEDIASTINUM: No gross cardiomegaly. Patent major mediastinal arteries. Scattered minimal arterial ath erosclerotic calcifications. No pathologically enlarged or progressive lymph nodes in the chest. OTHER: Significant regression of the previously seen soft tissue surrounding the inferior aspect of the descending thoracic aorta and inseparable from the posterior aspect of the esophagus, measuring 5 x 9 mm compared to 9 x 29 mm previously. Nonvisualized thyroid gland. Stable sclerotic area in the r ight humeral head. No aggressive bone lesion. LIVER/GB: Enlarged liver with diffuse hypodense parenchyma suggestive of hepatic steatosis. No defini te hepatic focal lesion identified. Previous cholecystectomy. Stable dilated CBD, likely related to p ostcholecystectomy status. PANCREAS: No significant abnormality is seen. SPLEEN: Smaller splenic lesion measuring 4 mm compared to 13 mm previously. Other tiny hypodense area s are seen at the inferior aspect of the spleen, suboptimally assessed due to the arterial phase of c ontrast injection. They are not appreciated in the delayed images and apparently smaller compared to the previous CT scan. The spleen measures 12.8 cm, stable. ADRENALS: Stable tiny right adrenal nodule/thickening. No progressive adrenal lesion. KIDNEYS: No significant abnormality is seen. BOWEL: Fecal loading of the colon. REPRODUCTIVE ORGANS: No gross uterine or adnexal mass. LYMPH NODES: No greater than 1 cm abdominal or pelvic lymph nodes are appreciated. OSSEOUS STRUCTURES: Degenerative changes at L5-S1 level. No aggressive bone lesion. OTHER: Scattered arterial atherosclerotic calcifications. No ascites. Grossly stable minimal fat stra nding/infiltration along the superior aspect of the superior mesenteric artery. IMPRESSION: Interval regression of the soft tissue lesion surrounding the inferior aspect of the descending thora cic aorta with regressing splenic lesions as described above. Stable minimal fat infiltration along the superior aspect of the superior mesenteric artery. No progressive splenic enlargement or progressive lymphadenopathy in the chest, abdomen or pelvis. No other definite suspicious lesion. Other interval changes and incidental findings as described above.
== END | disposition home or self-care (01) ==
LOC: RADCTMAIN 08:57
PROVIDERS: ATTEND Internal Medicine Hematology & Oncology
DX: Z03.89 Encounter for observation for other suspected diseases and conditions ruled out (principal); C82.98 Follicular lymphoma, unspecified, lymph nodes of multiple sites
CPT/HCPCS: 82565; 84520; 71260; 74177; 36415; Q9967

== ENCOUNTER → 2021-12-15 | Outpatient (CLI) | payer MEDICARE, OTHER ==
--- NOTE | 2021-12-16 11:28 | CT ---
EXAMINATION TYPE: CT ChestAbdPelvis w con DATE OF EXAM: 12/15/2021 INDICATION: Lymphoma COMPARISON: 04/15/2021, 07/16/2020 CT DLP: 2311 mGycm CONTRAST: Performed with Oral Contrast and with IV Contrast, patient injected with 70 ml mL of Isovue 300. TECHNIQUE: Axial images at 5 mm thick sections. Reconstructed images in the coronal plane. Delayed images through the kidneys. FINDINGS: CT CHEST: There is a 0.9 cm nodule at right hilar region. Series 4 image 38. This was present previously and st able. No enlarged mediastinal or hilar adenopathy is evident. No suspicious axillary adenopathy. Nonenlarge d retrocrural adenopathy The ascending aorta diameter at the level of the main pulmonary artery is 3.3 cm. The main pulmonary artery diameter at the bifurcation is 2.6 cm. No suspicious periaortic thickening in the descending thoracic aortic region is present. CT ABDOMEN: Small hiatal hernia is not excluded. Liver: Normal Spleen: Normal Pancreas: Normal Adrenal glands: The adrenal glands are normal. Gallbladder: Not identified. The common bile duct appears prominent at 1.3 cm. Kidneys: No masses are evident. No hydronephrosis is present. No cysts are present. Delayed images were obtained through the kidneys, which remain unremarkable. Aorta: Vascular calcification is within the aorta. Inferior vena cava: Normal. CT PELVIS: Some mild wall thickening within the hepatic flexure is not excluded. This area is nondistended. Oral contrast extends to the hepatic flexure. Small bowel loops distended with oral contrast. Unremarkabl e. There are loops of bowel lacking oral contrast limiting their evaluation. Appendix: Not well delineated. No suspicious dilated tubular structure or inflammatory changes eviden t. Urinary bladder: Normal. Genitourinary structures: Uterus is normal. Adnexa are normal. Osseous structures: No suspicious lytic or sclerotic lesions. Punctate nodularity is within the media l left iliac wing may be a small bone island. Some facet degenerative changes are present lower lumba r spine. Lymphadenopathy: Inguinal regions are unremarkable. No enlarged iliac chain or obturator canal adenop athy is evident. No retrocrural or periaortic adenopathy is evident. No suspicious mesenteric adenopa thy. IMPRESSIONS: 1. No suspicious changes to suggest re-current or metastatic lymphoma.
== END | disposition home or self-care (01) ==
LOC: RADCTMAIN 11:41
PROVIDERS: ATTEND Internal Medicine Hematology & Oncology
DX: C82.98 Follicular lymphoma, unspecified, lymph nodes of multiple sites (principal)
CPT/HCPCS: 82565; 84520; 71260; 74177; 36415; Q9967

== ENCOUNTER → 2022-02-28 | Outpatient (CLI) | payer MEDICARE, OTHER ==
--- NOTE | 2022-02-28 11:19 | FL ---
EXAMINATION TYPE: FL barium enema w air contrast DATE OF EXAM: 02/28/2022 COMPARISON: CT chest abdomen and pelvis 12/15/2021 HISTORY: Diarrhea, change in bowel habits, incomplete colonoscopy 2 years ago, lymphoma. TECHNIQUE: A double contrast barium enema study is performed. A total of 42 seconds of fluoroscopic time was utilized during procedure and 41 images obtained. FINDINGS: Getter Welder view of the abdomen shows overall non-obstructive bowel gas pattern. No evidence of any mass or polyp, obstructing or constricting lesion throughout the colon. Few scatte red colonic diverticula of the descending colon. Contrast reaches the cecum. Mildly redundant sigmoid colon. IMPRESSION: 1. No evidence for obstructing/constricting lesion of the colon. 2. Scattered colonic diverticulosis.
== END | disposition home or self-care (01) ==
LOC: RADFLMAIN 09:21
PROVIDERS: ATTEND Surgery
DX: K57.30 Diverticulosis of large intestine without perforation or abscess without bleeding (principal); R19.7 Diarrhea, unspecified; R19.4 Change in bowel habit
CPT/HCPCS: 74280